=== PATIENT | male | born 1975 | race Caucasian/White ===

== ENCOUNTER → 2018-04-21 | Outpatient (CLI) | payer BC ==
--- NOTE | 2018-04-21 12:54 | XR ---
EXAMINATION TYPE: XR ankle complete RT DATE OF EXAM: 04/21/2018 COMPARISON: NONE HISTORY: Pain TECHNIQUE: Frontal, lateral and oblique images of the right ankle are obtained. COMPARISON: None. FINDINGS: There is no acute fracture/dislocation evident. The joint spaces appear within normal barney its. The overlying soft tissue appears unremarkable. IMPRESSION: There is no acute fracture or dislocation seen.
--- NOTE | 2018-04-21 12:58 | XR ---
EXAMINATION TYPE: XR foot complete RT DATE OF EXAM: 04/21/2018 CLINICAL HISTORY: pain TECHNIQUE: Frontal, lateral and oblique images of the right foot are obtained. COMPARISON: None. FINDINGS: There is no acute fracture/dislocation evident. The joint spaces appear within normal barney its. The overlying soft tissue appears unremarkable. IMPRESSION: There is no acute fracture or dislocation. ICD 10 NO FRACTURE, INITIAL EVALUATION
== END | disposition home or self-care (01) ==
LOC: RADXRMAIN 12:17
PROVIDERS: ATTEND Internal Medicine
DX: M25.571 Pain in right ankle and joints of right foot (principal)

== ENCOUNTER → 2020-05-17 | Outpatient (CLI) | payer BC ==
--- NOTE | 2020-05-17 07:58 | US ---
EXAMINATION TYPE: US abdomen limited DATE OF EXAM: 05/17/2020 COMPARISON: NONE CLINICAL HISTORY: R94.5 ABN LIVER FUNCTIONS. EXAM MEASUREMENTS: Liver Length: 13.2 cm Gallbladder Wall: 0.2 cm CBD: 0.3 cm Right Kidney: 12.7 x 5.5 x 4.4 cm Patient of large body habitus with severe overlying bowel gas, technically difficult limited study. Pancreas: Obscured by bowel gas Liver: Increased attenuation, probable focal fatty sparing adjacent to gallbladder, limited visualiz ation Gallbladder: wnl, partially obscured by overlying bowel Evidence for sonographic Silver's sign: no CBD: wnl, small portion visualized Right Kidney: wnl IMPRESSION: 1. Liver is increased in attenuation could be seen with hepatic steatosis, diffuse hepatocellular dis ease or hepatitis. Area of lower echogenicity near the gallbladder fossa likely related to focal fatt y sparing.
[2020-05-17 09:11] LABS: ALT 70 U/L (4-49); AST 45 U/L (17-59)
[2020-05-17 16:33] LABS: Hepatitis A Antibody IgM Non-Reactive (Non-Reactive); Hepatitis B Core IgM Non-Reactive (Non-Reactive); Hepatitis B Surface Antigen Non-Reactive (Non-Reactive); Hepatitis C IgG Antibody Non-Reactive (Non-Reactive)
== END | disposition home or self-care (01) ==
LOC: RADUSWWP 07:07
PROVIDERS: ATTEND Internal Medicine
DX: R94.5 Abnormal results of liver function studies (principal)
CPT/HCPCS: 76705; 80074; 84450; 84460

== ENCOUNTER → 2025-04-19 | Outpatient (CLI) | payer BC ==
--- NOTE | 2025-04-19 08:54 | US ---
EXAMINATION TYPE: US abdomen limited DATE OF EXAM: 04/19/2025 COMPARISON: 05/17/20 CLINICAL INDICATION: Male, 49 years old with history of R94.5 ABN LIVER FUNCTION R94.4 ABN KIDNEY FUN CTION; abnormal liver functions TECHNIQUE: Grayscale and color Doppler imaging of the right upper quadrant was performed. FINDINGS: EXAM MEASUREMENTS: Liver Length: 17.0 cm Gallbladder Wall: 0.23 cm CBD: 0.3 cm Right Kidney: 14.0 x 6.2 x 6.0 cm PHOTOGRAPHIC ENGINEER NOTES: Pancreas: parts seen appear wnl Liver: heterogeneous and enlarged. Focal fatty sparing seen adjacent to GB Gallbladder: wnl Evidence for sonographic Silver's sign: No CBD: wnl Right Kidney: wnl IMPRESSION: 1. Mild hepatomegaly with fatty infiltration. [facility] Sebastine Nina, , 04/19/2025 8:51 AM
== END | disposition home or self-care (01) ==
LOC: RADUSWWP 07:42
PROVIDERS: ATTEND Internal Medicine
DX: K76.0 Fatty (change of) liver, not elsewhere classified (principal); R16.0 Hepatomegaly, not elsewhere classified; R94.5 Abnormal results of liver function studies; R94.4 Abnormal results of kidney function studies
CPT/HCPCS: 76705